=== PATIENT | female | born 1990 | race Caucasian/White ===

== ENCOUNTER → 2023-08-21 | Outpatient (CLI) | payer SELFPAY ==
[2023-08-21 14:44] LABS: Absolute Lymphocyte Count 2.29 X10^3/uL (0.83-4.51); Absolute Neutrophil Count 5.4 X10^3/uL (2.0-7.7); Basophil# 0.02 X10^3/uL; Basophil% 0.2 % (0-1); Eosinophil# 0.05 X10^3/uL; Eosinophils% 0.6 % (0-5); Hematocrit 39.4 % (37-47); Hemoglobin 13.2 g/dL (12.0-15.0); Lymphocyte # 2.29 X10^3/ul (0.83-4.51); Mean Corp Hgb Conc 33.5 g/dL (32-36); Mean Corpuscular Volume 86.6 fL (81-99); Mean Platelet Vol. 9.8 fl (6.2-12.0); Monocyte# 0.42 X10^3/uL; Monocyte% 5.1 % (0-10); NRBC Flagged by Analyzer 0 % (0-5); Neutrophil # 5.38 X10^3/uL (2.7-7.7); Neutrophil % 65.7 % (47-70); Platelet Count 309 K/mm3 (150-450); RBC Distribution Width CV 13.5 % (11.6-14.6); RBC Distribution Width SD 42.6 fl (35.1-43.9); Red Blood Count 4.55 M/mm3 (4.2-5.4); White Blood Count 8.2 K/mm3 (4.4-11.0)
[2023-08-21 15:45] LABS: HIV - WCH Non-Reactive (Nonreactive); Hepatitis B Surface Antigen Non-Reactive (Nonreactive); Hepatitis C Antibody Non-Reactive (Nonreactive); Rubella IgG Reactive (Nonreactive); Syphilis Antibodies Non-reactive
[2023-08-23 20:08] LABS: Chlamydia By Nucleic Acid AMP Negative (Negative); Gonococcus By Nucleic Acid AMP Negative (Negative)
[2023-08-26 15:07] LABS: HPV APTIMA, High Risk Negative (Negative)
== END | disposition home or self-care (01) ==
PROVIDERS: Referring Provider Advanced Practice Midwife; Visit Provider Advanced Practice Midwife
DX: O09.90 Supervision of high risk pregnancy, unspecified, unspecified trimester (principal); Z3A.00 Weeks of gestation of pregnancy not specified
CPT/HCPCS: 36415; 85025; 86703; 86762; 86780; 86803; 86850; 86900; 86901; 87086; 87088; 87340; 87491; 87591; 87624; 88175; G0145

== ENCOUNTER → 2023-11-21 | Outpatient (CLI) | payer SELFPAY ==
--- NOTE | 2023-11-21 07:58 | US_ITS ---
STUDY: SECOND AND THIRD TRIMESTER OBSTETRICAL ULTRASOUND REASON FOR EXAM: Female, 32 years old ANATOMY WITH CERVICAL LENGTH LMP: July 05, 2023. TECHNIQUE: Transabdominal and Transvaginal TECHNICAL QUALITY: Adequate. PRIOR ULTRASOUND: None. FINDINGS: There is a single intrauterine fetus. The fetus is in a breech and transverse right presentation. There is demonstrated cardiac activity with a heart rate of 150 bpm. There is a normal amniotic fluid volume. The largest amniotic fluid pocket measures 6 x 3.9 cm. The amniotic fluid index (DAGOBERTO) is within normal limits. The placenta is anterior in location and is not low lying. There are Grade 0 placental changes. The cervix measures 4 cm in length. The adnexal regions are not visualized. BIOMETRY: BPD: 4.56 cm: 19 weeks, 5 days HC: 17.28 cm: 19 weeks, 6 days AC: 14.61 cm: 19 weeks, 6 days FL: 3.19 cm: weeks, 6 days CI: 77% FL/BPD: 70% FL/HC: FL/AC: 22% HC/AC: 1.18 age by current US: 19 weeks, 6 days. OPAL by current US: April 10, 2024. Estimated weight: 321 grams, +/- 48 grams, 48 %. Age by LMP: 19 weeks, 6 days. OPAL by LMP: April 10, 2024. ANATOMY: Gender: Male Cranium: Normal lateral ventricles. Normal choroid plexus. Normal cerebellum. Normal cisterna magna. Normal face, nose and lips. Chest: Normal 4-chamber heart. Abdomen/Pelvis: Normal diaphragm. Normal stomach. Normal abdominal wall. Normal cord insertion. Normal 3 vessel cord. Normal kidneys. Normal bladder. Spine: Limited visualization of the spine due to positioning. Sagittal views were difficult to visualize. Follow-up recommended. Extremities: Normal bilateral upper extremities. Normal bilateral lower extremities. IMPRESSION: Single live uterine gestation with a mean gestational age of 19 weeks and 6 days. Limited full assessment of the spine due to position. Follow-up recommended. Electronically Signed: Eugene Chen MD at 15:03 EDT , STUDY: FIRST TRIMESTER OBSTETRICAL ULTRASOUND REASON FOR EXAM: Female, 32 years old. Cervical length. LMP: July 05, 2023. TECHNIQUE: Transvaginal TECHNICAL QUALITY: Adequate. PRIOR ULTRASOUND: None. FINDINGS: Cervical length measures 4.02 cm. US/OB Anatomy w/ Transvaginal IMPRESSION: Cervical length measures 4.02 cm. Electronically Signed: Eugene Chen MD at 15:03 EDT ,
== END | disposition home or self-care (01) ==
LOC: OPUS 07:54
PROVIDERS: Referring Provider Obstetrics & Gynecology; Visit Provider Obstetrics & Gynecology
DX: O09.91 Supervision of high risk pregnancy, unspecified, first trimester (principal); Z3A.11 11 weeks gestation of pregnancy
CPT/HCPCS: 76805; 76817

== ENCOUNTER → 2023-12-23 | Outpatient (CLI) | payer SELFPAY ==
--- NOTE | 2023-12-23 12:14 | US_ITS ---
STUDY: SECOND AND THIRD TRIMESTER OBSTETRICAL ULTRASOUND - LIMITED REASON FOR EXAM: Female, 33 years old follow up spinal views LMP: 09/04/2023 PRIOR ULTRASOUND: 11/21/2023 TECHNIQUE: Transabdominal TECHNICAL QUALITY: Adequate. FINDINGS: There is a single intrauterine fetus. The fetus is in a cephalic presentation. There is demonstrated cardiac activity with a heart rate of 152 bpm. There is a normal amniotic fluid volume. The largest amniotic fluid pocket measures 4.7 cm. The amniotic fluid index (DAGOBERTO) is cm. The placenta is anterior in location and is not low lying. There are Grade 0 placental changes. The cervix measures 4.0 cm in length. Age by LMP: 24 weeks, 3 days. OPAL by LMP: 04/10/2024. US/OB Limited (No Biometrics) IMPRESSION: Living intrauterine of 24 weeks 3 days as described above. Electronically Signed: Fernando Nguyen MD at 9:38 EDT ,
== END | disposition home or self-care (01) ==
PROVIDERS: Referring Provider Obstetrics & Gynecology; Visit Provider Obstetrics & Gynecology
DX: O09.92 Supervision of high risk pregnancy, unspecified, second trimester (principal); Z3A.00 Weeks of gestation of pregnancy not specified
CPT/HCPCS: 76815

== ENCOUNTER → 2024-01-20 | Outpatient (CLI) | payer SELFPAY ==
[2024-01-20 10:20] LABS: Absolute Lymphocyte Count 1.96 X10^3/uL (0.83-4.51); Absolute Neutrophil Count 7.3 X10^3/uL (2.0-7.7); Basophil# 0.02 X10^3/uL; Basophil% 0.2 % (0-1); Eosinophil# 0.05 X10^3/uL; Eosinophils% 0.5 % (0-5); Hematocrit 38.6 % (37-47); Hemoglobin 12.6 g/dL (12.0-15.0); Lymphocyte # 1.96 X10^3/ul (0.83-4.51); Lymphocyte % 19.6 % (19-41); Mean Corp Hgb Conc 32.6 g/dL (32-36); Mean Corpuscular Hgb 30.7 pg (27.0-32.0); Mean Corpuscular Volume 93.9 fL (81-99); Mean Platelet Vol. 10.3 fl (6.2-12.0); Monocyte# 0.55 X10^3/uL; Monocyte% 5.5 % (0-10); NRBC Flagged by Analyzer 0 % (0-5); Neutrophil # 7.29 X10^3/uL (2.7-7.7); Platelet Count 226 K/mm3 (150-450); RBC Distribution Width CV 13.3 % (11.6-14.6); RBC Distribution Width SD 45.6 fl (35.1-43.9); Red Blood Count 4.11 M/mm3 (4.2-5.4)
[2024-01-20 10:26] LABS: Glucose Challenge Gest 1H 50g 148 mg/dL (70-140)
[2024-01-20 11:02] LABS: HIV - WCH Non-Reactive (Nonreactive); Syphilis Antibodies Non-reactive
== END | disposition home or self-care (01) ==
LOC: LAB 09:31
PROVIDERS: Referring Provider Nurse Practitioner Women's Health; Visit Provider Nurse Practitioner Women's Health
DX: Z34.90 Encounter for supervision of normal pregnancy, unspecified, unspecified trimester (principal); Z3A.15 15 weeks gestation of pregnancy
CPT/HCPCS: 36415; 82950; 85025; 86703; 86780

== ENCOUNTER → 2024-02-17 | Outpatient (CLI) | payer SELFPAY ==
[2024-02-17 08:16] LABS: Bedside Glucose 107 mg/dL (74-106)
== END | disposition home or self-care (01) ==
LOC: LAB 07:49
PROVIDERS: Referring Provider Obstetrics & Gynecology; Visit Provider Obstetrics & Gynecology
DX: O09.92 Supervision of high risk pregnancy, unspecified, second trimester (principal); Z3A.00 Weeks of gestation of pregnancy not specified
CPT/HCPCS: 82962

== ENCOUNTER → 2024-03-05 | Outpatient (CLI) | payer SELFPAY | END | disposition home or self-care (01) | PROVIDERS: Referring Provider Nurse Practitioner Women's Health; Visit Provider Nurse Practitioner Women's Health | DX: O24.419 Gestational diabetes mellitus in pregnancy, unspecified control (principal); Z3A.00 Weeks of gestation of pregnancy not specified | CPT/HCPCS: 76816 ==

== ENCOUNTER → 2024-03-17 | Outpatient (CLI) | payer SELFPAY | END | disposition home or self-care (01) | PROVIDERS: Referring Provider Obstetrics & Gynecology; Visit Provider Obstetrics & Gynecology | DX: O09.92 Supervision of high risk pregnancy, unspecified, second trimester (principal); Z3A.00 Weeks of gestation of pregnancy not specified | CPT/HCPCS: 87081 ==

== ENCOUNTER 2024-03-28 04:33 | Inpatient (IN) | payer SELFPAY ==
[2024-03-28] VITALS (93 sets, daily range): BP systolic 89–146; BP diastolic 51–79; PULSE 68–214; RESP 14–17; TEMP 36–36.7; O2SAT 71–100; BMI 25.0
[2024-03-28 04:48] LABS: ROM Internal Control Test YES-OK TO RESULT pt. (Internal QC)
[2024-03-28 04:49] LABS: ROM Patient Test POSITIVE (Negative); Record Kit Lot#, ROM+ K1972
[2024-03-28] MEDS: Lactated Ringers 1,000 ML 999 ML IV (04:50)
[2024-03-28 05:07] LABS: Absolute Lymphocyte Count 1.74 X10^3/uL (0.83-4.51); Absolute Neutrophil Count 8.8 X10^3/uL (2.0-7.7); Basophil# 0.04 X10^3/uL; Basophil% 0.3 % (0-1); Eosinophil# 0.05 X10^3/uL; Eosinophils% 0.4 % (0-5); Hematocrit 38.3 % (37-47); Hemoglobin 12.6 g/dL (12.0-15.0); Lymphocyte # 1.74 X10^3/ul (0.83-4.51); Lymphocyte % 15.1 % (19-41); Mean Corp Hgb Conc 32.9 g/dL (32-36); Mean Corpuscular Hgb 28.9 pg (27.0-32.0); Mean Corpuscular Volume 87.8 fL (81-99); Mean Platelet Vol. 10.7 fl (6.2-12.0); Monocyte# 0.82 X10^3/uL; Monocyte% 7.1 % (0-10); NRBC Flagged by Analyzer 0 % (0-5); Neutrophil # 8.79 X10^3/uL (2.7-7.7); Neutrophil % 76.1 % (47-70); Platelet Count 211 K/mm3 (150-450); RBC Distribution Width CV 12.7 % (11.6-14.6); RBC Distribution Width SD 40.8 fl (35.1-43.9); Red Blood Count 4.36 M/mm3 (4.2-5.4); White Blood Count 11.6 K/mm3 (4.4-11.0)
[2024-03-28 05:42] LABS: Syphilis Antibodies Non-reactive
[2024-03-28] MEDS: Lactated Ringers 1,000 ML 200 ML IV ×2 (06:00→09:02)
[2024-03-28] MEDS: fentaNYL-bupivacaine (epidural) 100 ML BAG EPIDURAL ×2 (06:06→12:46)
[2024-03-28 08:32] LABS: Bedside Glucose 100 mg/dL (74-106)
[2024-03-28 08:32] LABS: Bedside Glucose 75 mg/dL (74-106)
[2024-03-28 09:15] LABS: Bedside Glucose 85 mg/dL (74-106)
[2024-03-28 10:02] LABS: Bedside Glucose 67 mg/dL (74-106)
[2024-03-28 10:57] LABS: Bedside Glucose 83 mg/dL (74-106)
[2024-03-28 11:36] LABS: Bedside Glucose 71 mg/dL (74-106)
[2024-03-28] MEDS: Oxytocin 15 Units/NS 250ml 15 UNITS/250 ML IV.SOLN 2 UNITS IV (12:27)
[2024-03-28 12:49] LABS: Bedside Glucose 76 mg/dL (74-106)
[2024-03-28] MEDS: Oxytocin 15 Units/NS 250ml 15 UNITS/250 ML IV.SOLN 83 UNITS IV (15:07)
[2024-03-28 15:12] LABS: Bedside Glucose 60 mg/dL (74-106)
[2024-03-28 15:12] LABS: Bedside Glucose 68 mg/dL (74-106)
[2024-03-28 16:19] LABS: Bedside Glucose 123 mg/dL (74-106)
[2024-03-28 19:31] LABS: Bedside Glucose 118 mg/dL (74-106)
[2024-03-29 00:25] VITALS: BP 98/64; PULSE 71; RESP 18; TEMP 36.5; O2SAT 99
[2024-03-29] MEDS: Naproxen 500 MG Tablet PO ×2 (03:04→11:50)
[2024-03-29 04:10] VITALS: BP 93/63; PULSE 72; RESP 12; TEMP 36.6; O2SAT 99
[2024-03-29 06:11] LABS: Bedside Glucose 80 mg/dL (74-106)
[2024-03-29 07:56] VITALS: BP 97/73; PULSE 84; RESP 14; TEMP 36.2; O2SAT 100
[2024-03-29 11:56] VITALS: BP 98/64; PULSE 80; RESP 16; TEMP 36.7; O2SAT 99
[2024-03-29] MEDS: Acetaminophen 500 MG Tablet 1000 MG PO (17:42)
[2024-03-29 17:44] VITALS: BP 110/73; PULSE 90; RESP 14; TEMP 36.8; O2SAT 100
== END 2024-03-29 19:00 | disposition home or self-care (01) | DRG 807 ==
LOC: WPOUT 04:38 → WP 04:38
PROVIDERS: Admitting Provider Registered Nurse; Referring Provider Registered Nurse; Visit Provider Registered Nurse
DX: O24.420 Gestational diabetes mellitus in childbirth, diet controlled (principal); Z37.0 Single live birth; O99.344 Other mental disorders complicating childbirth; F41.8 Other specified anxiety disorders; Z3A.38 38 weeks gestation of pregnancy; Z82.79 Family history of other congenital malformations, deformations and chromosomal abnormalities; Z80.3 Family history of malignant neoplasm of breast
CPT/HCPCS: 59025; 59050; 82962; 84112; 85025; 86780; 86850; 86900; 86901; 99221; J7120; G0378